=== PATIENT | male | born 1960 | race Caucasian/White ===

== ENCOUNTER → 2019-02-21 | Outpatient (CLI) | payer OTHER | END | disposition home or self-care (01) | LOC: PETCFH 08:23 | PROVIDERS: ATTEND Specialist | DX: C43.59 Malignant melanoma of other part of trunk (principal); R91.1 Solitary pulmonary nodule | CPT/HCPCS: 78816; A9552 ==

== ENCOUNTER 2019-03-10 17:05 | Inpatient (IN) | payer OTHER ==
[~2019-03-10] VITALS: Ht 180.3 cm; Wt 63.9 kg
--- NOTE | 2019-03-10 17:35 | NUR ---
ASSUMED PT CARE. PT WITH INCREASING CONFUSION FOR PAST 3 DAYS. THICK SPEECH AND RIGHT FACIAL DROOP NOTED BY THIS RN. PT HAND GRASPS WEAKER ON RIGHT WITH +DRIFT. DR CROUCH TO BEDSIDE, PT ASSESSMENT REVIEWED. PT CURRENTLY BEING TREATED FOR STG 4 MELANOMA. PT WITH ABCESS NOTED TO RIGHT AXILLARY AREA, BLACK AND FOUL SMELLING, RIGHT UPPER CHEST WITH +ERRYTHEMA. VSS AND CALL LIGHT W/I REACH. PTS AT BEDSIDE. PT TO BE NPO, GYCERINE SWABS GIVEN.
[2019-03-10] MEDS ORDERED: SODIUM CHLORIDE 0.9% 1,000 ML IV ONE (17:44)
[2019-03-10] MEDS ORDERED: SODIUM CHLORIDE FLUSH 10ML SYR IVF ONE (18:00)
[2019-03-10] MEDS ORDERED: PIPERACILLIN/TAZO/PMX 3.375GM 50 ML IV ONE (18:00)
[2019-03-10] MEDS ORDERED: PLEASE ENTER ALLERGIES MC SCH (18:09)
[2019-03-10 18:32] LABS: BASOPHILS % (AUTO) 0 % (0-1); EOSINOPHILS # (AUTO) 0.16 x10^3/uL (0-0.4); EOSINOPHILS % (AUTO) 1 % (1-7); LYMPHOCYTES # (AUTO) 0.47 x10^3/uL (1-3.4); LYMPHOCYTES % (AUTO) 4 % (22-44); MD NO; MEAN CORPUSCULAR HEMOGLOBIN 32.9 pg (27.5-34.5); MEAN CORPUSCULAR HGB CONC 33.8 g/dL (33.2-36.2); MEAN CORPUSCULAR VOLUME 97.2 fL (81-97); MEAN PLATELET VOLUME 6.5 fL (7.4-10.4); MONOCYTES # (AUTO) 0.55 x10^3/uL (0.2-0.8); MONOCYTES % (AUTO) 4 % (2-9); NEUTROPHILS # (AUTO) 12.09 x10^3/uL (1.8-6.8); NEUTROPHILS % (AUTO) 91 % (42-75); PLATELET COUNT 288 x10^3/uL (130-400); RED BLOOD COUNT 4.18 x10^6/uL (4.38-5.82); RED CELL DISTRIBUTION WIDTH 15.5 % (9.4-14.8)
[2019-03-10 18:41] LABS: ALANINE AMINOTRANSFERASE 31 U/L (12-78); ALBUMIN 2.6 g/dL (3.4-5.0); ANION GAP 10 mmol/L (5-15); CALCIUM 8.6 mg/dL (8.5-10.1); CHLORIDE 84 mmol/L (98-107); CREATININE 0.46 mg/dL (0.7-1.3)
[2019-03-10 18:44] LABS: ALKALINE PHOSPHATASE 75 U/L (45-117); BILIRUBIN,TOTAL 0.6 mg/dL (0.2-1.0); TOTAL PROTEIN 6.6 g/dL (6.4-8.2)
[2019-03-10] MEDS ORDERED: PIPERACILLIN/TAZO/PMX 3.375GM 50 ML ONE (18:52)
[2019-03-10] MEDS ORDERED: [UNRECOGNIZED DRUG - OTHER] (19:08)
[2019-03-10] MEDS ORDERED: oxycodone PO (19:08)
[2019-03-10] MEDS ORDERED: MORP30TA81 PO (19:08)
[2019-03-10] MEDS ORDERED: MORPHINE SULFATE 4 MG/ML, 1ML ONE (19:34)
[2019-03-10] MEDS ORDERED: MORPHINE SULFATE 4 MG/ML, 1ML IVPush ONE (20:00)
[2019-03-10] MEDS ORDERED: OMNIPAQUE 350 MG/ML, 75ML BOTTLE ONE (20:06)
[2019-03-10 21:03] LABS: MICROSCOPIC NOT IND
[2019-03-10 21:07] LABS: CULTURE INDICATED? NO; SODIUM,URINE RANDOM 13 mmol/L
[2019-03-10 21:18] LABS: ANION GAP 13 mmol/L (5-15); CHLORIDE 86 mmol/L (98-107); CREATININE 0.49 mg/dL (0.7-1.3)
[2019-03-10 21:23] LABS: OSMOLALITY,URINE 276 mOsm/kg (500-850)
[2019-03-10] MEDS ORDERED: ONDANSETRON 2MG/ML, 2ML IVPush PRN (21:30)
[2019-03-10] MEDS ORDERED: ACETAMINOPHEN 325 MG TABLET PO PRN (21:30)
[2019-03-10] MEDS ORDERED: VANCOMYCIN PMX 1GM/200ML 200 ML IV ONE (21:30)
[2019-03-10] MEDS ORDERED: PROMETHAZINE 25 MG/ML, 1ML IM PRN (21:30)
[2019-03-10] MEDS ORDERED: BISACODYL 10 MG SUPP PR PRN (21:30)
[2019-03-10] MEDS ORDERED: VANCOMYCIN PER PHARMACY MC PRN (21:30)
[2019-03-10] MEDS ORDERED: POLYETHYLENE GLYCOL 17 GM PACKET PO PRN (21:30)
[2019-03-10] MEDS ORDERED: DOCUSATE 100 MG CAPSULE PO PRN (21:30)
[2019-03-10 22:15] VITALS: BP 153/91
[2019-03-10] MEDS ORDERED: PHARMACOKINETIC CONSULTATION MC ONE (23:00)
[2019-03-10] MEDS ORDERED: PHARMACOKINETIC MONITORING MC PRN (23:00)
[2019-03-10] MEDS: ENOXAPARIN 40 MG/0.4 ML SQ SCH (23:10)
[2019-03-10] MEDS: VANCOMYCIN 1,400 MG in SODIUM CHLORIDE 0.9% 250 ML IV SCH (23:10)
[2019-03-10] MEDS: SODIUM CHLORIDE 0.9% 1,000 ML IV SCH (23:11)
[2019-03-10] MEDS: OXYcodone IR 5MG TABLET PO PRN (23:20)
[2019-03-11] MEDS: PIPERACILLIN/TAZO/PMX 3.375GM 50 ML IV SCH ×4 (01:07→19:30)
[2019-03-11 01:22] LABS: ANION GAP 7 mmol/L (5-15); CALCIUM 8.7 mg/dL (8.5-10.1); CHLORIDE 88 mmol/L (98-107); CREATININE 0.52 mg/dL (0.7-1.3)
[2019-03-11 01:54] VITALS: BP 147/86
[2019-03-11 05:01] LABS: BASOPHILS # (AUTO) 0.04 x10^3/uL (0-0.1); BASOPHILS % (AUTO) 0 % (0-1); EOSINOPHILS # (AUTO) 0.05 x10^3/uL (0-0.4); EOSINOPHILS % (AUTO) 0 % (1-7); LYMPHOCYTES # (AUTO) 0.39 x10^3/uL (1-3.4); LYMPHOCYTES % (AUTO) 3 % (22-44); MD NO; MEAN CORPUSCULAR HEMOGLOBIN 32.9 pg (27.5-34.5); MEAN CORPUSCULAR HGB CONC 33.9 g/dL (33.2-36.2); MEAN CORPUSCULAR VOLUME 97.1 fL (81-97); MEAN PLATELET VOLUME 6.9 fL (7.4-10.4); MONOCYTES # (AUTO) 1.05 x10^3/uL (0.2-0.8); MONOCYTES % (AUTO) 8 % (2-9); NEUTROPHILS # (AUTO) 11.28 x10^3/uL (1.8-6.8); NEUTROPHILS % (AUTO) 88 % (42-75); PLATELET COUNT 314 x10^3/uL (130-400); RED BLOOD COUNT 4.35 x10^6/uL (4.38-5.82); RED CELL DISTRIBUTION WIDTH 15.7 % (9.4-14.8)
[2019-03-11 05:09] LABS: ALANINE AMINOTRANSFERASE 29 U/L (12-78); ALBUMIN 2.5 g/dL (3.4-5.0); CALCIUM 8.6 mg/dL (8.5-10.1); CHLORIDE 85 mmol/L (98-107); CREATININE 0.54 mg/dL (0.7-1.3)
[2019-03-11 05:11] LABS: ALKALINE PHOSPHATASE 85 U/L (45-117); BILIRUBIN,TOTAL 0.8 mg/dL (0.2-1.0); TOTAL PROTEIN 6.6 g/dL (6.4-8.2)
[2019-03-11 05:19] LABS: ANION GAP 11 mmol/L (5-15)
[2019-03-11 07:10] VITALS: BP 161/87
[2019-03-11] MEDS ORDERED: POTASSIUM CHLORIDE 20 MEQ TAB.ER.PRT PO ONE (08:30)
[2019-03-11 09:04] LABS: ANION GAP 9 mmol/L (5-15); CALCIUM 8.2 mg/dL (8.5-10.1); CHLORIDE 86 mmol/L (98-107)
[2019-03-11 09:05] LABS: CREATININE 0.61 mg/dL (0.7-1.3)
[2019-03-11 09:34] LABS: CLOSTRIDIUM DIFFICILE ANTIGEN NEGATIVE; CLOSTRIDIUM DIFFICILE TOXIN NEGATIVE (Negative)
[2019-03-11] MEDS: VANCOMYCIN 1,400 MG in SODIUM CHLORIDE 0.9% 250 ML IV SCH ×2 (11:37→22:58)
[2019-03-11] MEDS: OXYcodone IR 5MG TABLET PO PRN ×3 (11:38→22:26)
[2019-03-11 13:02] VITALS: BP 148/83
[2019-03-11] MEDS: SODIUM CHLORIDE 0.9% 1,000 ML IV SCH (14:06)
[2019-03-11 19:07] VITALS: BP 161/84
[2019-03-11] MEDS: ENOXAPARIN 40 MG/0.4 ML SQ SCH (19:30)
[2019-03-12] MEDS: SODIUM CHLORIDE 0.9% 1,000 ML IV SCH (01:27)
[2019-03-12] MEDS: PIPERACILLIN/TAZO/PMX 3.375GM 50 ML IV SCH ×4 (01:27→22:53)
[2019-03-12 01:45] VITALS: BP 149/76
[2019-03-12] MEDS: OXYcodone IR 5MG TABLET PO PRN ×3 (03:26→17:56)
[2019-03-12 07:07] VITALS: BP 154/89
[2019-03-12 08:22] LABS: MEAN CORPUSCULAR HEMOGLOBIN 32.3 pg (27.5-34.5); MEAN CORPUSCULAR HGB CONC 33.8 g/dL (33.2-36.2); MEAN CORPUSCULAR VOLUME 95.4 fL (81-97); MEAN PLATELET VOLUME 6.1 fL (7.4-10.4); PLATELET COUNT 354 x10^3/uL (130-400); RED BLOOD COUNT 4.37 x10^6/uL (4.38-5.82); RED CELL DISTRIBUTION WIDTH 15.1 % (9.4-14.8)
[2019-03-12 08:25] LABS: ANION GAP 8 mmol/L (5-15); CALCIUM 8.6 mg/dL (8.5-10.1); CHLORIDE 96 mmol/L (98-107); CREATININE 0.72 mg/dL (0.7-1.3)
[2019-03-12 08:57] LABS: MD YES
[2019-03-12 09:02] LABS: ANISOCYTOSIS 1+; BAND#(MANUAL) 0.63 x10^3/uL; BANDS%(MANUAL) 5 % (0-7); EOS#(MANUAL) 0.13 x10^3/uL (0.0-0.4); EOS% (MANUAL) 1 % (1-7); LYMPH#(MANUAL) 0.13 x10^3/uL (1-3.4); LYMPHS% (MANUAL) 1 % (22-44); MONOS#(MANUAL) 2.02 x10^3/uL (0.3-2.7); MONOS% (MANUAL) 16 % (2-9); SEGS% (MANUAL) 77 % (42-75)
[2019-03-12 09:03] LABS: <PLATELET ESTIMATE> ADEQUATE; <PLT MORPHOLOGY> NORMAL PLT MORPH
[2019-03-12] MEDS: DEXAMETHASONE 4 MG/ML, 1ML IVPush SCH ×2 (09:29→20:07)
[2019-03-12] MEDS: VANCOMYCIN 1,400 MG in SODIUM CHLORIDE 0.9% 250 ML IV SCH (12:01)
[2019-03-12 13:26] VITALS: BP 138/81
[2019-03-12 14:28] LABS: ANION GAP 10 mmol/L (5-15); CALCIUM 8.4 mg/dL (8.5-10.1); CHLORIDE 98 mmol/L (98-107); CREATININE 0.85 mg/dL (0.7-1.3)
[2019-03-12] MEDS ORDERED: DEXTROSE 5% 500 ML IV SCH (15:00)
[2019-03-12] MEDS ORDERED: POTASSIUM CHLORIDE 20 MEQ TAB.ER.PRT PO SCH (17:00)
[2019-03-12] MEDS: POTASSIUM CHLORIDE 20 MEQ TAB.ER.PRT PO SCH ×2 (17:55→20:06)
[2019-03-12 19:33] VITALS: BP 153/95
[2019-03-12] MEDS: ENOXAPARIN 40 MG/0.4 ML SQ SCH (20:07)
[2019-03-12] MEDS: VANCOMYCIN 1,600 MG in SODIUM CHLORIDE 0.9% 250 ML IV SCH (20:49)
[2019-03-13] MEDS: ZOLPIDEM 5MG TABLET PO SCH ×2 (00:05→21:53)
[2019-03-13 02:49] VITALS: BP 142/82
[2019-03-13 05:29] LABS: BASOPHILS # (AUTO) 0.01 x10^3/uL (0-0.1); BASOPHILS % (AUTO) 0 % (0-1); EOSINOPHILS % (AUTO) 1 % (1-7); LYMPHOCYTES # (AUTO) 0.45 x10^3/uL (1-3.4); LYMPHOCYTES % (AUTO) 4 % (22-44); MD NO; MEAN CORPUSCULAR HGB CONC 34.1 g/dL (33.2-36.2); MEAN CORPUSCULAR VOLUME 96.7 fL (81-97); MEAN PLATELET VOLUME 6.4 fL (7.4-10.4); MONOCYTES # (AUTO) 0.98 x10^3/uL (0.2-0.8); MONOCYTES % (AUTO) 8 % (2-9); NEUTROPHILS # (AUTO) 10.83 x10^3/uL (1.8-6.8); NEUTROPHILS % (AUTO) 88 % (42-75); PLATELET COUNT 338 x10^3/uL (130-400); RED BLOOD COUNT 4.05 x10^6/uL (4.38-5.82); RED CELL DISTRIBUTION WIDTH 15.2 % (9.4-14.8)
[2019-03-13 05:52] LABS: ALBUMIN 2.3 g/dL (3.4-5.0); ANION GAP 7 mmol/L (5-15); CALCIUM 8.7 mg/dL (8.5-10.1); CHLORIDE 103 mmol/L (98-107)
[2019-03-13 05:55] LABS: ALANINE AMINOTRANSFERASE 24 U/L (12-78); ALKALINE PHOSPHATASE 90 U/L (45-117); BILIRUBIN,TOTAL 0.4 mg/dL (0.2-1.0); CREATININE 0.66 mg/dL (0.7-1.3)
[2019-03-13] MEDS: PIPERACILLIN/TAZO/PMX 3.375GM 50 ML IV SCH ×3 (05:58→18:32)
[2019-03-13 07:11] VITALS: BP 146/95
[2019-03-13] MEDS: POTASSIUM CHLORIDE 20 MEQ TAB.ER.PRT PO SCH ×2 (09:17→18:32)
[2019-03-13] MEDS: OXYcodone IR 5MG TABLET PO PRN ×2 (09:18→20:09)
[2019-03-13] MEDS: VANCOMYCIN 1,600 MG in SODIUM CHLORIDE 0.9% 250 ML IV SCH ×2 (09:18→21:52)
[2019-03-13] MEDS: DEXAMETHASONE 4 MG/ML, 1ML IVPush SCH ×2 (09:18→21:52)
[2019-03-13] MEDS ORDERED: GADOTERATE 7.5 MMOL/15 ML SYR ONE (11:24)
[2019-03-13 13:33] VITALS: BP 146/87
[2019-03-13 19:32] VITALS: BP 165/93
[2019-03-14] MEDS: PIPERACILLIN/TAZO/PMX 3.375GM 50 ML IV SCH ×4 (01:04→19:29)
[2019-03-14 04:00] VITALS: BP 157/89
[2019-03-14 04:50] LABS: BASOPHILS # (AUTO) 0.01 x10^3/uL (0-0.1); BASOPHILS % (AUTO) 0 % (0-1); EOSINOPHILS # (AUTO) 0.09 x10^3/uL (0-0.4); EOSINOPHILS % (AUTO) 1 % (1-7); LYMPHOCYTES # (AUTO) 0.55 x10^3/uL (1-3.4); LYMPHOCYTES % (AUTO) 4 % (22-44); MD NO; MEAN CORPUSCULAR HEMOGLOBIN 32.7 pg (27.5-34.5); MEAN CORPUSCULAR HGB CONC 33.8 g/dL (33.2-36.2); MEAN CORPUSCULAR VOLUME 96.7 fL (81-97); MEAN PLATELET VOLUME 6.1 fL (7.4-10.4); MONOCYTES # (AUTO) 0.67 x10^3/uL (0.2-0.8); MONOCYTES % (AUTO) 5 % (2-9); NEUTROPHILS # (AUTO) 12.98 x10^3/uL (1.8-6.8); NEUTROPHILS % (AUTO) 91 % (42-75); PLATELET COUNT 401 x10^3/uL (130-400); RED BLOOD COUNT 4.45 x10^6/uL (4.38-5.82); RED CELL DISTRIBUTION WIDTH 15.5 % (9.4-14.8)
[2019-03-14 05:07] LABS: ALBUMIN 2.6 g/dL (3.4-5.0); ANION GAP 8 mmol/L (5-15); CALCIUM 9.1 mg/dL (8.5-10.1); CHLORIDE 101 mmol/L (98-107)
[2019-03-14 05:12] LABS: ALANINE AMINOTRANSFERASE 32 U/L (12-78); ALKALINE PHOSPHATASE 80 U/L (45-117); BILIRUBIN,TOTAL 0.5 mg/dL (0.2-1.0); CREATININE 0.68 mg/dL (0.7-1.3); TOTAL PROTEIN 6.7 g/dL (6.4-8.2)
[2019-03-14] MEDS: OXYcodone IR 5MG TABLET PO PRN ×2 (05:34→16:08)
[2019-03-14 07:30] VITALS: BP 156/86
[2019-03-14] MEDS: VANCOMYCIN 1,600 MG in SODIUM CHLORIDE 0.9% 250 ML IV SCH ×2 (08:15→21:06)
[2019-03-14] MEDS: DEXAMETHASONE 4 MG/ML, 1ML IVPush SCH (08:15)
[2019-03-14] MEDS: POTASSIUM CHLORIDE 20 MEQ TAB.ER.PRT PO SCH ×2 (08:15→16:07)
[2019-03-14] MEDS: AMLODIPINE 5 MG TABLET PO SCH (10:03)
[2019-03-14] MEDS: LACTATED RINGERS 1,000 ML IV SCH (10:09)
[2019-03-14 15:00] VITALS: BP 150/96
[2019-03-14 15:20] VITALS: BP 105/62
[2019-03-14] MEDS: DEXAMETHASONE 4 MG TABLET PO SCH (16:07)
[2019-03-14 19:08] VITALS: BP 157/94
[2019-03-14] MEDS: ZOLPIDEM 5MG TABLET PO SCH (21:09)
[2019-03-14] MEDS: morphine SULFATE 10 MG/ML, 1ML IVPush PRN (23:14)
[2019-03-15] MEDS: PIPERACILLIN/TAZO/PMX 3.375GM 50 ML IV SCH ×4 (01:38→19:34)
[2019-03-15 02:24] VITALS: BP 153/89
[2019-03-15 05:39] LABS: ALANINE AMINOTRANSFERASE 30 U/L (12-78); ALBUMIN 2.8 g/dL (3.4-5.0); ANION GAP 10 mmol/L (5-15); CALCIUM 9.4 mg/dL (8.5-10.1); CHLORIDE 99 mmol/L (98-107)
[2019-03-15 05:40] LABS: BASOPHILS # (AUTO) 0.01 x10^3/uL (0-0.1); BASOPHILS % (AUTO) 0 % (0-1); EOSINOPHILS # (AUTO) 0.04 x10^3/uL (0-0.4); EOSINOPHILS % (AUTO) 0 % (1-7); LYMPHOCYTES # (AUTO) 0.97 x10^3/uL (1-3.4); LYMPHOCYTES % (AUTO) 6 % (22-44); MD NO; MEAN CORPUSCULAR HEMOGLOBIN 32.3 pg (27.5-34.5); MEAN CORPUSCULAR HGB CONC 33.3 g/dL (33.2-36.2); MEAN CORPUSCULAR VOLUME 97.1 fL (81-97); MEAN PLATELET VOLUME 6.1 fL (7.4-10.4); MONOCYTES # (AUTO) 0.99 x10^3/uL (0.2-0.8); MONOCYTES % (AUTO) 7 % (2-9); NEUTROPHILS # (AUTO) 13.21 x10^3/uL (1.8-6.8); NEUTROPHILS % (AUTO) 87 % (42-75); PLATELET COUNT 368 x10^3/uL (130-400); RED BLOOD COUNT 4.81 x10^6/uL (4.38-5.82); RED CELL DISTRIBUTION WIDTH 15.4 % (9.4-14.8)
[2019-03-15 05:42] LABS: ALKALINE PHOSPHATASE 78 U/L (45-117); BILIRUBIN,TOTAL 0.5 mg/dL (0.2-1.0); CREATININE 0.71 mg/dL (0.7-1.3)
[2019-03-15] MEDS: POTASSIUM CHLORIDE 20 MEQ TAB.ER.PRT PO SCH ×2 (07:21→16:36)
[2019-03-15] MEDS: DEXAMETHASONE 4 MG TABLET PO SCH ×2 (07:21→16:35)
[2019-03-15 08:12] VITALS: BP 143/96
[2019-03-15] MEDS: AMLODIPINE 5 MG TABLET PO SCH (08:27)
[2019-03-15] MEDS: VANCOMYCIN 1,600 MG in SODIUM CHLORIDE 0.9% 250 ML IV SCH ×2 (08:27→20:41)
[2019-03-15] MEDS: morphine SULFATE 10 MG/ML, 1ML IVPush PRN ×2 (08:28→17:33)
[2019-03-15 14:46] VITALS: BP 150/98
[2019-03-15 18:56] VITALS: BP 153/92
[2019-03-15] MEDS: LACTATED RINGERS 1,000 ML IV SCH (19:34)
[2019-03-15] MEDS: ZOLPIDEM 5MG TABLET PO SCH (20:41)
[2019-03-16] MEDS: morphine SULFATE 10 MG/ML, 1ML IVPush PRN ×6 (01:40→23:00)
[2019-03-16] MEDS: PIPERACILLIN/TAZO/PMX 3.375GM 50 ML IV SCH ×4 (01:40→21:43)
[2019-03-16 01:52] VITALS: BP 144/97
[2019-03-16 04:46] LABS: BASOPHILS # (AUTO) 0.06 x10^3/uL (0-0.1); BASOPHILS % (AUTO) 0 % (0-1); EOSINOPHILS # (AUTO) 0.02 x10^3/uL (0-0.4); EOSINOPHILS % (AUTO) 0 % (1-7); LYMPHOCYTES # (AUTO) 0.84 x10^3/uL (1-3.4); LYMPHOCYTES % (AUTO) 5 % (22-44); MD NO; MEAN CORPUSCULAR HEMOGLOBIN 32.4 pg (27.5-34.5); MEAN CORPUSCULAR HGB CONC 33.5 g/dL (33.2-36.2); MEAN CORPUSCULAR VOLUME 96.7 fL (81-97); MEAN PLATELET VOLUME 6.3 fL (7.4-10.4); MONOCYTES # (AUTO) 0.98 x10^3/uL (0.2-0.8); MONOCYTES % (AUTO) 6 % (2-9); NEUTROPHILS % (AUTO) 89 % (42-75); PLATELET COUNT 371 x10^3/uL (130-400); RED BLOOD COUNT 5.07 x10^6/uL (4.38-5.82); RED CELL DISTRIBUTION WIDTH 15.5 % (9.4-14.8)
[2019-03-16 05:03] LABS: ALANINE AMINOTRANSFERASE 26 U/L (12-78); ANION GAP 9 mmol/L (5-15); CALCIUM 9.5 mg/dL (8.5-10.1); CHLORIDE 98 mmol/L (98-107); CREATININE 0.73 mg/dL (0.7-1.3)
[2019-03-16 05:05] LABS: ALKALINE PHOSPHATASE 78 U/L (45-117); BILIRUBIN,TOTAL 0.6 mg/dL (0.2-1.0); TOTAL PROTEIN 7.4 g/dL (6.4-8.2)
[2019-03-16 06:52] VITALS: BP 166/115
[2019-03-16] MEDS ORDERED: LORazepam 2 MG/ML, 1ML ONE (07:51)
[2019-03-16] MEDS ORDERED: LORazepam 2 MG/ML, 1ML IVPush PRN ×2 (08:00→08:30)
[2019-03-16 08:28] VITALS: BP 159/109
[2019-03-16] MEDS: AMLODIPINE 5 MG TABLET PO SCH (09:12)
[2019-03-16] MEDS: POTASSIUM CHLORIDE 20 MEQ TAB.ER.PRT PO SCH ×2 (09:12→16:50)
[2019-03-16] MEDS ORDERED: LEVETIRACETAM 100 MG/ML, 5ML IV SCH (09:30)
[2019-03-16] MEDS ORDERED: LEVETIRACETAM 2,000 MG in SODIUM CHLORIDE 0.9% 100 ML IV ONE (09:30)
[2019-03-16] MEDS: DEXAMETHASONE 4 MG TABLET PO SCH ×3 (10:01→21:45)
[2019-03-16 12:24] VITALS: BP 154/107
[2019-03-16 12:54] VITALS: BP 128/87
[2019-03-16] MEDS: VANCOMYCIN 1,600 MG in SODIUM CHLORIDE 0.9% 250 ML IV SCH (12:56)
[2019-03-16] MEDS: OXYcodone IR 5MG TABLET PO PRN (15:13)
[2019-03-16 19:11] VITALS: BP 138/94
[2019-03-16] MEDS: ZOLPIDEM 5MG TABLET PO SCH (21:44)
[2019-03-17] MEDS ORDERED: MORPHINE SULFATE 4 MG/ML, 1ML ONE (00:18)
[2019-03-17] MEDS ORDERED: MORPHINE SULFATE 4 MG/ML, 1ML IVPush ONE (00:30)
[2019-03-17] MEDS ORDERED: OXYcodone 5 MG/5 ML ORAL.SOL UDC PO PRN (00:30)
[2019-03-17] MEDS: VANCOMYCIN 1,600 MG in SODIUM CHLORIDE 0.9% 250 ML IV SCH ×2 (01:46→14:25)
[2019-03-17] MEDS: morphine SULFATE 10 MG/ML, 1ML IVPush PRN ×7 (01:46→23:04)
[2019-03-17 01:52] VITALS: BP 130/90
[2019-03-17] MEDS: PIPERACILLIN/TAZO/PMX 3.375GM 50 ML IV SCH ×4 (03:54→16:10)
[2019-03-17 05:06] LABS: MEAN CORPUSCULAR HEMOGLOBIN 31.6 pg (27.5-34.5); MEAN CORPUSCULAR HGB CONC 33.3 g/dL (33.2-36.2); MEAN CORPUSCULAR VOLUME 94.9 fL (81-97); MEAN PLATELET VOLUME 6.4 fL (7.4-10.4); PLATELET COUNT 315 x10^3/uL (130-400); RED BLOOD COUNT 4.94 x10^6/uL (4.38-5.82); RED CELL DISTRIBUTION WIDTH 15.2 % (9.4-14.8)
[2019-03-17 05:18] LABS: CHLORIDE 101 mmol/L (98-107)
[2019-03-17 05:29] LABS: ALANINE AMINOTRANSFERASE 25 U/L (12-78); ALBUMIN 2.8 g/dL (3.4-5.0); ALKALINE PHOSPHATASE 72 U/L (45-117); ANION GAP 8 mmol/L (5-15); BILIRUBIN,TOTAL 0.6 mg/dL (0.2-1.0); CALCIUM 9.2 mg/dL (8.5-10.1); CREATININE 0.73 mg/dL (0.7-1.3)
[2019-03-17 05:42] LABS: BASOPHILS % (AUTO) 0 % (0-1); EOSINOPHILS # (AUTO) 0.02 x10^3/uL (0-0.4); EOSINOPHILS % (AUTO) 0 % (1-7); LYMPHOCYTES # (AUTO) 0.56 x10^3/uL (1-3.4); LYMPHOCYTES % (AUTO) 3 % (22-44); MD SCAN; MONOCYTES % (AUTO) 1 % (2-9); NEUTROPHILS # (AUTO) 17.82 x10^3/uL (1.8-6.8); NEUTROPHILS % (AUTO) 96 % (42-75)
[2019-03-17] MEDS: DEXAMETHASONE 4 MG TABLET PO SCH (06:10)
[2019-03-17 06:32] VITALS: BP 131/92
[2019-03-17] MEDS: POTASSIUM CHLORIDE 20 MEQ TAB.ER.PRT PO SCH ×2 (08:00→15:56)
[2019-03-17] MEDS ORDERED: LEVETIRACETAM 1,000 MG in SODIUM CHLORIDE 0.9% 100 ML IV SCH (09:30)
[2019-03-17] MEDS ORDERED: LACOSAMIDE 200 MG in SODIUM CHLORIDE 0.9% 100 ML IV ONE (10:00)
[2019-03-17 12:01] VITALS: BP 126/89
[2019-03-17] MEDS: DEXAMETHASONE 4 MG/ML, 1ML IVPush SCH ×3 (12:42→23:36)
[2019-03-17] MEDS: AMLODIPINE 5 MG TABLET PO SCH (12:43)
--- NOTE | 2019-03-17 16:34 | NUR ---
REC: Pureed/thin liquid diet Addendum: 03/17/19 at 1635 by Katie GEE Amended: Links added.
[2019-03-17] MEDS: ZOLPIDEM 5MG TABLET PO SCH (20:51)
[2019-03-17] MEDS: LACOSAMIDE 150 MG in SODIUM CHLORIDE 0.9% 100 ML IV SCH (20:51)
[2019-03-17] MEDS ORDERED: LACOSAMIDE 50 MG TABLET PO SCH (21:00)
[2019-03-18] MEDS: morphine SULFATE 10 MG/ML, 1ML IVPush PRN ×5 (02:13→14:24)
[2019-03-18 05:24] LABS: MEAN CORPUSCULAR HEMOGLOBIN 32.5 pg (27.5-34.5); MEAN CORPUSCULAR HGB CONC 34.4 g/dL (33.2-36.2); MEAN CORPUSCULAR VOLUME 94.3 fL (81-97); MEAN PLATELET VOLUME 6.6 fL (7.4-10.4); PLATELET COUNT 336 x10^3/uL (130-400); RED BLOOD COUNT 5.19 x10^6/uL (4.38-5.82); RED CELL DISTRIBUTION WIDTH 15.3 % (9.4-14.8)
[2019-03-18 05:27] VITALS: BP 154/100
[2019-03-18] MEDS: DEXAMETHASONE 4 MG/ML, 1ML IVPush SCH ×2 (05:30→11:31)
[2019-03-18 05:31] LABS: ANION GAP 8 mmol/L (5-15); CALCIUM 9.3 mg/dL (8.5-10.1); CHLORIDE 105 mmol/L (98-107)
[2019-03-18 05:34] LABS: ALANINE AMINOTRANSFERASE 25 U/L (12-78); ALKALINE PHOSPHATASE 72 U/L (45-117); BILIRUBIN,TOTAL 0.6 mg/dL (0.2-1.0); CREATININE 0.91 mg/dL (0.7-1.3); TOTAL PROTEIN 7.5 g/dL (6.4-8.2)
[2019-03-18 05:58] LABS: BASOPHILS % (AUTO) 0 % (0-1); EOSINOPHILS # (AUTO) 0.03 x10^3/uL (0-0.4); EOSINOPHILS % (AUTO) 0 % (1-7); LYMPHOCYTES # (AUTO) 0.58 x10^3/uL (1-3.4); LYMPHOCYTES % (AUTO) 3 % (22-44); MD SCAN; MONOCYTES # (AUTO) 1.21 x10^3/uL (0.2-0.8); MONOCYTES % (AUTO) 6 % (2-9); NEUTROPHILS % (AUTO) 91 % (42-75)
[2019-03-18 08:39] VITALS: BP 156/109
[2019-03-18] MEDS: POTASSIUM CHLORIDE 20 MEQ TAB.ER.PRT PO SCH (08:41)
[2019-03-18] MEDS: AMLODIPINE 5 MG TABLET PO SCH (08:42)
[2019-03-18] MEDS ORDERED: AMLO-150 PO (10:04)
[2019-03-18] MEDS ORDERED: DEXA4TAB PO (10:04)
[2019-03-18] MEDS: LACOSAMIDE 150 MG in SODIUM CHLORIDE 0.9% 100 ML IV SCH (10:14)
== END 2019-03-18 14:25 | disposition hospice, home (50) | DRG 871 ==
LOC: ED 18:45 → EDIP 18:52 → ED 19:07 → 4NW 22:23 → 5SO 03-16 08:08
PROVIDERS: ADMIT Internal Medicine; ATTEND Internal Medicine
PROC: 0T9B70Z Drainage of Bladder with Drainage Device, Via Natural or Artificial Opening (ICD-10-PCS; principal; 2019-03-10)
DX: A41.9 Sepsis, unspecified organism (principal); G93.41 Metabolic encephalopathy; I63.9 Cerebral infarction, unspecified; I61.9 Nontraumatic intracerebral hemorrhage, unspecified; C78.00 Secondary malignant neoplasm of unspecified lung; C79.31 Secondary malignant neoplasm of brain; E22.2 Syndrome of inappropriate secretion of antidiuretic hormone; E46 Unspecified protein-calorie malnutrition; Z68.1 Body mass index [BMI] 19.9 or less, adult; G40.89 Other seizures; C43.9 Malignant melanoma of skin, unspecified; E86.9 Volume depletion, unspecified; G89.29 Other chronic pain; H51.0 Palsy (spasm) of conjugate gaze; G93.2 Benign intracranial hypertension; Z51.5 Encounter for palliative care; Z66 Do not resuscitate; Z85.820 Personal history of malignant melanoma of skin; Z88.8 Allergy status to other drugs, medicaments and biological substances; Z92.21 Personal history of antineoplastic chemotherapy
CPT/HCPCS: 36415; 70450; 70553; 71260; 77290; 77334; 77470; 80048; 80053; 80202; 81003; 83605; 83735; 83930; 83935; 84100; 84145; 84146; 84295; 84300; 84443; 84550; 85025; 87040; 87324; 93005; 96374; C9254; G0378; J1100; J1650; J1953; J2543; J3370; Q9967; A9575; J2060; J2270; J7030; J7050; J7060; J7120